=== PATIENT | female | born 1985 | race Caucasian/White ===

== ENCOUNTER 2023-06-07 20:09 | Emergency (ER) | payer MEDICAID, OTHER ==
[~2023-06-07] VITALS: Ht 162.6 cm; Wt 72.6 kg
[2023-06-07] MEDS ORDERED: LIDOCAINE /MPF 1% VIAL 5 ML VIAL ONE (21:02)
[2023-06-07] MEDS ORDERED: LIDOCAINE HCL/PF 1% 30 ML SDV ONE (21:03)
[2023-06-07] MEDS ORDERED: SULF1TAB48 PO (22:12)
[2023-06-07] MEDS ORDERED: CEPH500C2 PO (22:12)
[2023-06-07] MEDS ORDERED: ACET-2605 PO (22:12)
[2023-06-07] MEDS ORDERED: IBUP-1955 PO (22:12)
[2023-06-07] MEDS ORDERED: SULFAMETH/TRIMETH 800/160 MG 1 UDTAB TABLET ONE (22:26)
[2023-06-07] MEDS ORDERED: CEPHALEXIN MONOHYDRATE 500 MG CAPSULE PO ONE (22:26)
[2023-06-07] MEDS: CEPHALEXIN MONOHYDRATE 500 MG CAPSULE PO ONE (22:29)
[2023-06-07] MEDS: SULFAMETH/TRIMETH 800/160 MG 1 UDTAB TABLET PO ONE (22:29)
[2023-06-07 22:36] VITALS: BP 122/66; TEMP 98.4; O2SAT 99
== END 2023-06-07 22:37 | disposition home or self-care (01) ==
LOC: ER 20:18
DX: L02.412 Cutaneous abscess of left axilla (principal)
CPT/HCPCS: 99283; 10060; J3490 ×2; A6403